=== PATIENT | male | born 1940 | race Caucasian/White ===

== ENCOUNTER → 2017-08-12 | Outpatient (CLI) | payer MEDICARE, BC ==
--- NOTE | 2017-08-12 13:34 | MR ---
EXAMINATION TYPE: MR shoulder RT wo con DATE OF EXAM: 08/12/2017 COMPARISON: NONE HISTORY: M75.101 Rotator cuff tear/rupture, right shoulder, loss of range of motion, pain TECHNIQUE: Multiplanar, multisequence imaging of the right shoulder is performed without contrast. FINDINGS: Rotator Cuff: There is a small intrasubstance tear of the insertional fibers of the supraspinatus measuring 0.3 x 0 .7 cm superimposed upon moderate tendinopathy as there is heterogenous signal of the insertional fibe rs of the supraspinatus and at the myotendinous junction. There is bursal surface fraying of the supr aspinatus. Subchondral cysts are noted at the greater tuberosity. Scant amount of subdeltoid/subacrom ial fluid is seen. There is minimal insertional tendinosis of the infraspinatus tendinous signal heterogeneity without t ear. Teres minor tendon is unremarkable. Mild insertional fiber tendinosis is also seen of the subsca pularis without tear. Acromioclavicular Joint: Moderate acromioclavicular arthropathy is noted with capsular hypertrophy, s ubchondral cysts and marginal osteophytes minimally impressing upon the supraspinatus musculature wit hout signal alteration. Glenohumeral Joint: Large subchondral cystic change are seen of the glenoid and at the greater tubero sity. There is mild posterior joint space narrowing and heterogeneity of the opposing surface cartila ge. Labrum: Complex tear of the anterior superior glenoid labrum is present without displacement. Degener ation of the anterior inferior glenoid labrum. Complex tear is also seen of the posterior inferior gl enoid labrum with a 6 mm para labral cyst. Superior posterior glenoid labrum is intact and unremarkab le. Biceps Tendon: There is a split tear of the extra-articular portion of the biceps tendon extending in to the intra-articular portion with severe biceps tendinosis as there is attenuation of the biceps te ndon at its insertion on the biceps anchor. Hemorrhage is seen within the bicipital groove and surrou nding intra-articular portion of the biceps tendon. Bone marrow signal: No focal abnormal marrow signal is appreciated. IMPRESSION: 1. Small intrasubstance tear of the insertional fibers of the supraspinatus measuring 0.3 x 0.7 cm mcdonald perimposed upon moderate tendinopathy. 2. Mild insertional fiber tendinopathy of the infraspinatus and subscapularis without tear. 3. Complex tears of the anterior superior glenoid labrum and posterior inferior glenoid labrum with p osterior inferior para labral cyst. Degeneration of the anterior inferior glenoid labrum is also seen . 4. Split tear of the extra-articular portion of the biceps tendon extending into the intra-articular portion with severe biceps tendinosis of the intra-articular portion. Peritendinous hemorrhage is als o seen within the bicipital groove and surrounding the intraarticular portion of the biceps. 5. Moderate glenohumeral arthropathy and acromioclavicular arthropathy.
== END | disposition home or self-care (01) ==
LOC: RADMRIMAIN 06:08
PROVIDERS: ATTEND Internal Medicine
DX: M75.101 Unspecified rotator cuff tear or rupture of right shoulder, not specified as traumatic (principal); S43.491A Other sprain of right shoulder joint, initial encounter; M12.811 Other specific arthropathies, not elsewhere classified, right shoulder; S46.211A Strain of muscle, fascia and tendon of other parts of biceps, right arm, initial encounter; M67.813 Other specified disorders of tendon, right shoulder

== ENCOUNTER → 2018-04-20 | Outpatient (CLI) | payer MEDICARE, BC ==
--- NOTE | 2018-04-20 15:31 | CT ---
EXAMINATION TYPE: CT abdomen pelvis wo con DATE OF EXAM: 04/20/2018 COMPARISON: None HISTORY: 77-year-old male kidney stones, Left side flank and groin pain. CT DLP: 344.9 mGycm. Automated exposure control for dose reduction was used. TECHNIQUE: Contiguous axial scanning of the abdomen and pelvis without IV contrast. Coronal and sagit rob reconstructions performed. FINDINGS: Heart normal size without pericardial effusion. Lung bases clear without pleural effusion. Noncontrast images of the liver show a 1.5 cm hypodense lesion, likely cyst in the inferior right jt er lobe. A 1.2 cm gallstone is present. Adrenal glands and pancreas show no gross abnormality by noncontrast CT. There is a 1.9 cm hypodense lesion medial right kidney inadequately characterized on this noncontrast study, suspected cyst. Attempt can be made to confirm this by ultrasound. Vascular calcifications ne ar the left renal hilum. No nephrolithiasis or hydronephrosis seen on either side. Splenomegaly at 14.8 cm on coronal series. Scattered borderline sized retroperitoneal lymph nodes measuring up to 9 mm in the left periaortic re gion and scattered nonenlarged mesenteric lymph nodes. No dilated small bowel, free fluid, or free air. Normal appendix. Moderate stool burden without pericolonic inflammatory change. There are bilateral inguinal hernias, suspect direct hernia is containing a few small bowel loops on the right measuring 7.7 x 2.5 cm and containing a segment of proximal sigmoid colon on the left measu ring 7.2 x 3.6 cm. No obstructive or inflammatory changes are seen. Bladder urine distended. Prostate gland is enlarged measuring 5.4 cm wide. Extensive metal hardware a rtifact relating to the patient's left hip replacement limits assessment of the pelvis. No abnormal f luid collection seen. Prominent obturator chain lymph nodes measure up to 7 mm on the left is 8 mm on the right. Bones: Prominent heterotopic ossifications about the left greater trochanter. A sclerotic focus in th e right iliac bone has stellate margins suggestive of a bone island. Degenerative changes throughout the visualized spine. Superior and inferior endplate Schmorl's nodes of L1 and grade 1 anterolisthesi s at both T11-T12 and L4-L5. IMPRESSION: 1. Moderate-sized bilateral inguinal hernias. These appear to be direct inguinal hernias and contain a short segment of proximal sigmoid colon on the left and a couple small bowel loops on the right. N o obstructive or inflammatory changes. 2. No nephrolithiasis or hydronephrosis seen. A 1.9 cm lesion in the right kidney. Recommend attempt at characterizing this as a benign cyst by ultrasound. 3. Cholelithiasis. 4. Mild splenomegaly (14.8 cm). 5. Prostatomegaly (5.4 cm wide). A couple prominent obturator chain and left para-aortic lymph nodes measuring up to 9 mm are probably reactive/post inflammatory. Correlate with PSA values.
== END | disposition home or self-care (01) ==
LOC: RADCTMAIN 14:57
PROVIDERS: ATTEND Internal Medicine
DX: N28.9 Disorder of kidney and ureter, unspecified (principal); N40.0 Benign prostatic hyperplasia without lower urinary tract symptoms
CPT/HCPCS: 74176

== ENCOUNTER → 2021-06-04 | Outpatient (CLI) | payer MEDICARE ==
--- NOTE | 2021-06-04 16:44 | MR ---
EXAMINATION TYPE: MR brain and iac wo/w con DATE OF EXAM: 06/04/2021 COMPARISON: NONE HISTORY: Left sided hearing loss. TECHNIQUE: Multiplanar, multisequence images of the brain and brainstem along with internal auditory canals are all performed without and with IV contrast, utilizing 7.5 mL intravenous Gadavist . FINDINGS: Diffusion weighted images demonstrate no evidence of a recent infarct or other diffusion ab normality. There is moderate ventricular and sulcal prominence. There are significant focal and confluent areas of T2 hyperintensity throughout the white matter bilaterally. Midline structures demonstrate normal morphology. The craniocervical junction appears within normal limits. Post contrast images demonstrate no abnormal enhancement. The dural venous sinuses appear pa tent. The visualized sinuses are clear and the globes are intact. Increased fluid signal bilateral mastoid air cells. The vestibulocochlear complexes are symmetric and felt within normal limits. There is no suspicious enhancing cerebellopontine angle mass identified b ilaterally. IMPRESSION: 1. There is moderate diffuse cerebral atrophy and advanced nonspecific white matter changes may be on basis of product of severe chronic small vessel ischemic change but other etiologies are not exclud ed. No suspicious enhancement noted. 2. Increased fluid signal bilateral mastoid air cells raises concern for underlying mastoiditis, magui elate clinically.
== END | disposition home or self-care (01) ==
LOC: RADMRIMAIN 14:53
PROVIDERS: ATTEND Otolaryngology
DX: G31.9 Degenerative disease of nervous system, unspecified (principal)
CPT/HCPCS: 70553; A9585

== ENCOUNTER 2022-12-13 10:40 | Emergency (ER) | payer MEDICARE ==
[2022-12-13] MEDS ORDERED: DIPH,PERTUS(ACELL)TETVAC-LF 0.5 ML VIAL IM ONE (10:46)
[2022-12-13 10:48] VITALS: PULSE 86; RESP 16; TEMP 97.7
[2022-12-13 10:55] LABS: Glucose,Whole Blood 95 mg/dL (70-110)
[2022-12-13 11:18] LABS: ALT 39 U/L (4-49); African American GFR (CKD) >90 (>60 ml/min/1.73 sqM); Albumin 4.2 g/dL (3.5-5.0); Alcohol <10 mg/dL; Anion Gap 9 mmol/L; Blood Urea Nitrogen 24 mg/dL (9-20); Calcium 9.3 mg/dL (8.4-10.2); Carbon Dioxide 27 mmol/L (22-30); Chloride 101 mmol/L (98-107); Glucose 94 mg/dL (74-99); Non-African American GFR(CKD) 87 (>60 ml/min/1.73 sqM); Sodium 137 mmol/L (137-145); Total Bilirubin 0.9 mg/dL (0.2-1.3); Total Protein 6.1 g/dL (6.3-8.2)
--- NOTE | 2022-12-13 11:18 | ED ---
General Adult HPI - General Chief complaint: Head Injury Stated complaint: Fall, head injury Time Seen by Provider: 12/13/22 10:40 Source: patient, EMS, RN notes reviewed, old records reviewed Mode of arrival: EMS Limitations: altered mental status - History of Present Illness Initial comments: This is an 82-year-old male who presents emergency department via EMS. Patient history FROM EMS BECAUSE PATIENT IS DEMENTED AND STATES HE DOESN'T REMEMBER WHAT HAPPENED BUT HE'S BEEN TOLD HE FELL DOWN STEPS. ACCORDING TO EMS PATIENT FELL DOWN STEPS. It is unknown if he lost consciousness no one witnessed that he was not seen for about 10-15 minutes. Number of steps is also unknown since he was walking down steps holding the railing in the railing broke. Patient has a laceration of the posterior aspect of his scalp. Patient also has an abrasion to his left elbow. Patient himself has no complaints of pain. Patient refused to wear collar. - Related Data Home Medications Medication Instructions Recorded Confirmed Cyanocobalamin [Vitamin B-12] 500 mcg PO DAILY 12/12/15 12/12/15 Diclofenac Sodium [Voltaren Gel] 1 applic TOPICAL DAILY PRN 12/12/15 12/12/15 Fish Oil/Dha/Epa [Fish Oil 1,200 1 cap PO DAILY 12/12/15 12/12/15 mg Fish Oil] Lactobacillus Acidophilus 1 tab PO DAILY 12/12/15 12/12/15 [Acidophilus] Omeprazole [PriLOSEC] 40 mg PO BID 12/12/15 12/12/15 Pseudoephedrine [Sudafed] 30 mg PO DAILY PRN 12/12/15 12/12/15 Sodium Chloride [[place]] 1 spray EA NOSTRIL DAILY PRN 12/12/15 12/12/15 levETIRAcetam [Keppra] 500 mg PO BID 12/12/15 12/12/15 Allergies Allergy/AdvReac Type Severity Reaction Status Date / Time amoxicillin Allergy Rash/Hives Verified 12/12/15 19:27 Review of Systems ROS Statement: Those systems with pertinent positive or pertinent negative responses have been documented in the HPI. ROS Other: All systems not noted in ROS Statement are negative. Past Medical History Past Medical History: Cancer Additional Past Medical History / Comment(s): hypogylcemia, Arthritis History of Any Multi-Drug Resistant Organisms: None Reported Past Surgical History: Orthopedic Surgery Past Psychological History: No Psychological Hx Reported Past Alcohol Use History: Daily Past Drug Use History: None Reported General Exam - General Exam Comments Initial Comments: GENERAL: Patient is well-developed and well-nourished. Patient is nontoxic and well- hydrated and is in mild distress. ENT: Neck is soft and supple. No significant lymphadenopathy is noted. Oropharynx is clear. Moist mucous membranes. Neck has full range of motion without eliciting any pain. EYES: The sclera were anicteric and conjunctiva were pink and moist. Extraocular movements were intact and pupils were equal round and reactive to light. Eyelids were unremarkable. PULMONARY: Unlabored respirations. Good breath sounds bilaterally. No audible rales rhonchi or wheezing was noted. CARDIOVASCULAR: There is a regular rate and rhythm without any murmurs gallops or rubs. ABDOMEN: Soft and nontender with normal bowel sounds. SKIN: Scalp laceration and the pattern on the posterior aspect of the scalp. Patient also has an abrasion to the left elbow NEUROLOGIC: Patient is alert and oriented x3. Cranial nerves II through XII are grossly intact. Motor and sensory are also intact. Normal speech, volume and content. Symmetrical smile. MUSCULOSKELETAL: Normal extremities with adequate strength and full range of motion. No lower extremity swelling or edema. No calf tenderness. LYMPHATICS: No significant lymphadenopathy is noted PSYCHIATRIC: Normal psychiatric evaluation. Limitations: altered mental status Course Vital Signs 12/13/22 12/13/22 10:41 11:00 Temperature 97.7 F Pulse Rate 86 Respiratory 16 16 Rate Blood Pressure 135/70 123/68 O2 Sat by Pulse 96 Oximetry Procedures - Laceration Laceration #1 Consent Obtained: verbal consent Indication: laceration Site: scalp Description: irregular Depth: simple, single layer Size of Sutures: other ([place]) Number of Sutures: 12 ([place]) Complications: pain Patient Tolerated Procedure: well Medical Decision Making - Medical Decision Making EKG was interpreted by myself shows a sinus rhythm with occasional PVC. Patie nt's rate was 81 bpm ID interval 139 QRS is 93 QT interval is 356 QTC is 393. Patient's EKG shows no ST segment elevation or depression. Was pt. sent in by a medical professional or institution (, PA, CARRIER LOADER, urgent care, hospital, or custodial...) When possible be specific @ -No Did you speak to anyone other than the patient for history (EMS, parent, family, police, friend...)? What history was obtained from this source @ -EMS gave most of the history since the patient has dementia and doesn't remember the incident Did you review nursing and triage notes (agree or disagree)? Why? @ -I reviewed and agree with nursing and triage notes Were old charts reviewed (outside hosp., previous admission, EMS record, old EKG, old radiological studies, urgent care reports/EKG's, custodial records)? Report findings @ -No old charts were reviewed Differential Diagnosis (chest pain, altered mental status, abdominal pain women, abdominal pain men, vaginal bleeding, weakness, fever, dyspnea, syncope, headache, dizziness, GI bleed, back pain, seizure, CVA, palpatations, mental health, musculoskeletal)? @ -Cervical spine fracture, scalp contusion, scalp laceration, intraparenchymal bleed, epidural, subdural, this is not LISTED EKG interpreted by me (3pts min.). @ -As above X-rays interpreted by me (1pt min.). @ -Chest x-ray was interpreted by myself I saw no acute abnormalities. X-ray of the pelvis was interpreted by myself I see no acute normalities. X-ray of the elbow was interpreted by myself I see no acute abnormality CT interpreted by me (1pt min.). @ -CT of the brain was interpreted by myself as an intraparenchymal bleed in the right frontal lobe about [address] of the C-spine was also interpreted by myself shows a spinous process fracture at C6 U/S interpreted by me (1pt. min.). @ -None done What testing was considered but not performed or refused? (CT, X-rays, U/S, labs)? Why? @ -None What meds were considered but not given or refused? Why? @ -None Did you discuss the management of the patient with other professionals (professionals i.e. , PA, CARRIER LOADER, lab, RT, psych nurse, community mental health social worker, tube cutter, teacher, morals squad police officer, correctional counselor/case manager)? Give summary @ -I spoke with Dr. Valdes at the [facility] and he accepted the transfer the patient. I then spoke with the ER physician Dr. Romero and he accepted the transfer to the emergency department. Was smoking cessation discussed for >3mins.? @ -No Was critical care preformed (if so, how long)? @ -35 minutes Were there social determinants of health that impacted care today? How? (Homelessness, low income, unemployed, alcoholism, drug addiction, transportation, low edu. Level, literacy, decrease access to med. care, [facility], rehab)? @ -No Was there de-escalation of care discussed even if they declined (Discuss DNR or withdrawal of care, Hospice)? DNR status @ -No What co-morbidities impacted this encounter? (DM, HTN, Smoking, COPD, CAD, Cancer, CVA, ARF, Chemo, Hep., AIDS, mental health diagnosis, sleep apnea, morbid obesity)? @ -None Was patient admitted / discharged? Hospital course, mention meds given and rou te, prescriptions, significant lab abnormalities, going to OR and other pertinent info. @ -Patient fell down multiple steps and had altered level of consciousness was called priority 2 trauma. When patient arrived he got x-rays the chest elbow and pelvis. Patient also had CT of the brain and C-spine which showed an intraparenchymal bleed in the C6 spinous process fracture. Since we did not have neurosurgery at this facility we were transferring the patient to [facility] Undiagnosed new problem with uncertain prognosis? @ -No Drug Therapy requiring intensive monitoring for toxicity (Heparin, Nitro, Insulin, Cardizem)? @ -No Were any procedures done? @ -No Diagnosis/symptom? @ -Parenchymal hemorrhage Acute, or Chronic, or Acute on Chronic? @ -Acute Uncomplicated (without systemic symptoms) or Complicated (systemic symptoms)? @ -Complicated Side effects of treatment? @ -No Exacerbation, Progression, or Severe Exacerbation? @ -No Poses a threat to life or bodily function? How? (Chest pain, [place], [place], pneumonia, PE, COPD, DKA, ARF, appy, cholecystitis, CVA, Diverticulitis, Homicidal, Suicidal, threat to staff... and all critical care pts) @ -Yes this could lead to further bleeding and intracranial shifting of the brain which could lead to morbidity or mortality Diagnosis/symptom? @ -Scalp laceration Acute, or Chronic, or Acute on Chronic? @ -Acute Uncomplicated (without systemic symptoms) or Complicated (systemic symptoms)? @ -Uncomplicated Side effects of treatment? @ -none Exacerbation, Progression, or Severe Exacerbation] @ -no Poses a threat to life or bodily function? @ -no Diagnosis/symptom? @ -C6 spinous process fracture Acute, or Chronic, or Acute on Chronic? @ -Acute Uncomplicated (without systemic symptoms) or Complicated (systemic symptoms)? @ -Uncomplicated Side effects of treatment? @ -none Exacerbation, Progression, or Severe Exacerbation] @ -no Poses a threat to life or bodily function? @ -no Diagnosis/symptom? @ -Contusion upper back Acute, or Chronic, or Acute on Chronic? @ -Acute Uncomplicated (without systemic symptoms) or Complicated (systemic symptoms)? @ -Uncomplicated Side effects of treatment? @ -none Exacerbation, Progression, or Severe Exacerbation] @ -no Poses a threat to life or bodily function? @ -no Diagnosis/symptom? @ -Abrasion elbow Acute, or Chronic, or Acute on Chronic? @ -Acute Uncomplicated (without systemic symptoms) or Complicated (systemic symptoms)? @ -Uncomplicated Side effects of treatment? @ -none Exacerbation, Progression, or Severe Exacerbation] @ -no Poses a threat to life or bodily function? @ -no - Lab Data Result diagrams: 12/13/22 10:50 12/13/22 10:50 Lab Results 12/13/22 12/13/22 12/13/22 Range/Units 10:50 10:50 10:50 WBC 23.5 H (3.8-10.6) k/uL RBC 4.66 (4.30-5.90) m/uL Hgb 15.4 (13.0-17.5) gm/dL Hct 45.1 (39.0-53.0) % MCV 96.9 (80.0-100.0) fL MCH 33.1 (25.0-35.0) pg MCHC 34.2 (31.0-37.0) g/dL RDW 12.7 (11.5-15.5) % MPV 7.1 PT 11.2 (9.0-12.0) sec INR 1.1 (<1.2) APTT 22.9 (22.0-30.0) sec Sodium 137 (137-145) mmol/L Potassium 4.3 (3.5-5.1) mmol/L Chloride 101 (98-107) mmol/L Carbon Dioxide 27 (22-30) mmol/L Anion Gap 9 mmol/L BUN 24 H (9-20) mg/dL Creatinine 0.75 (0.66-1.25) mg/dL Est GFR (CKD-EPI)AfAm >90 (>60 ml/min/1.73 sqM) Est GFR (CKD-EPI)NonAf 87 (>60 ml/min/1.73 sqM) Glucose 94 (74-99) mg/dL POC Glucose (mg/dL) (70-110) mg/dL POC Glu Substation Operator Helper ID Calcium 9.3 (8.4-10.2) mg/dL Total Bilirubin 0.9 (0.2-1.3) mg/dL AST 45 (17-59) U/L ALT 39 (4-49) U/L Alkaline Phosphatase 65 (38-126) U/L Troponin I (0.000-0.034) ng/mL Total Protein 6.1 L (6.3-8.2) g/dL Albumin 4.2 (3.5-5.0) g/dL Serum Alcohol <10 mg/dL Blood Type Blood Type Confirm Blood Type Recheck Bld Type Recheck Status Antibody Screen Spec Expiration Date 12/13/22 12/13/22 12/13/22 Range/Units 10:50 10:50 10:53 WBC (3.8-10.6) k/uL RBC (4.30-5.90) m/uL Hgb (13.0-17.5) gm/dL Hct (39.0-53.0) % MCV (80.0-100.0) fL MCH (25.0-35.0) pg MCHC (31.0-37.0) g/dL RDW (11.5-15.5) % MPV PT (9.0-12.0) sec INR (<1.2) APTT (22.0-30.0) sec Sodium (137-145) mmol/L Potassium (3.5-5.1) mmol/L Chloride (98-107) mmol/L Carbon Dioxide (22-30) mmol/L Anion Gap mmol/L BUN (9-20) mg/dL Creatinine (0.66-1.25) mg/dL Est GFR (CKD-EPI)AfAm (>60 ml/min/1.73 sqM) Est GFR (CKD-EPI)NonAf (>60 ml/min/1.73 sqM) Glucose (74-99) mg/dL POC Glucose (mg/dL) 95 (70-110) mg/dL POC Glu Substation Operator Helper ID Rosie Araujo Calcium (8.4-10.2) mg/dL Total Bilirubin (0.2-1.3) mg/dL AST (17-59) U/L ALT (4-49) U/L Alkaline Phosphatase (38-126) U/L Troponin I 0.012 (0.000-0.034) ng/mL Total Protein (6.3-8.2) g/dL Albumin (3.5-5.0) g/dL Serum Alcohol mg/dL Blood Type A Negative Blood Type Confirm Blood Type Recheck No Previous Record Bld Type Recheck Status CABO Indicated Antibody Screen NEGATIVE Spec Expiration Date 12/16/2022 - 234912/13/22 Range/Units 11:00 WBC (3.8-10.6) k/uL RBC (4.30-5.90) m/uL Hgb (13.0-17.5) gm/dL Hct (39.0-53.0) % MCV (80.0-100.0) fL MCH (25.0-35.0) pg MCHC (31.0-37.0) g/dL RDW (11.5-15.5) % MPV PT (9.0-12.0) sec INR (<1.2) APTT (22.0-30.0) sec Sodium (137-145) mmol/L Potassium (3.5-5.1) mmol/L Chloride (98-107) mmol/L Carbon Dioxide (22-30) mmol/L Anion Gap mmol/L BUN (9-20) mg/dL Creatinine (0.66-1.25) mg/dL Est GFR (CKD-EPI)AfAm (>60 ml/min/1.73 sqM) Est GFR (CKD-EPI)NonAf (>60 ml/min/1.73 sqM) Glucose (74-99) mg/dL POC Glucose (mg/dL) (70-110) mg/dL POC Glu Substation Operator Helper ID Calcium (8.4-10.2) mg/dL Total Bilirubin (0.2-1.3) mg/dL AST (17-59) U/L ALT (4-49) U/L Alkaline Phosphatase (38-126) U/L Troponin I (0.000-0.034) ng/mL Total Protein (6.3-8.2) g/dL Albumin (3.5-5.0) g/dL Serum Alcohol mg/dL Blood Type Blood Type Confirm A Negative Blood Type Recheck Bld Type Recheck Status Antibody Screen Spec Expiration Date Critical Care Time Critical Care Time: Yes Total Critical Care Time: 35 Disposition Clinical Impression: Intraparenchymal hemorrhage of brain, Spinous process fracture, Scalp laceration, Contusion, back, Abrasion of elbow Disposition: OTHER INSTITUTION NOT DEFINED Referrals: Bryant Rvai MD [Primary Care Provider] - 1-2 days Time of Disposition: 12:36 - Out of Hospital Transfer - Req. Specs Out of Hospital Transfer - Requested Specifics: Other Emergency Center ([facility]
[2022-12-13 11:20] LABS: AST 45 U/L (17-59); Alkaline Phosphatase 65 U/L (38-126); Potassium 4.3 mmol/L (3.5-5.1)
[2022-12-13 11:21] LABS: INR 1.1 (<1.2); Partial Thromboplastin Time 22.9 sec (22.0-30.0); Prothrombin Time 11.2 sec (9.0-12.0)
--- NOTE | 2022-12-13 11:25 | XR ---
EXAMINATION TYPE: XR elbow complete LT DATE OF EXAM: 12/13/2022 11:17 AM INDICATION: Patient age:Male; 82 years old; Reason for study: Trauma; COMPARISON: None TECHNIQUE: The left elbow was examined in AP, lateral, and oblique projections. FINDINGS: No evidence of any acute osseous pathology, joint dislocation, or soft tissue swelling is n oted. No evidence of joint effusion is present. Degeneration changes of the elbow with osteophyte fo rmation joint space narrowing. IMPRESSION: Elbow degeneration without discrete fracture visualized. If there remains concern consider CT.
[2022-12-13 11:26] VITALS: BP 123/68
--- NOTE | 2022-12-13 11:28 | XR ---
EXAMINATION TYPE: XR chest 1V portable DATE OF EXAM: 12/13/2022 10:53 AM COMPARISON: Chest radiographs from 12/12/2015 TECHNIQUE: XR chest 1V portable Frontal view of the chest. CLINICAL INDICATION:Male, 82 years old with history of trauma; FINDINGS: Lungs/Pleura: There is no evidence of pleural effusion, focal consolidation, or pneumothorax. Pulmonary vascularity: Unremarkable. Heart/mediastinum: Cardiomediastinal silhouette is unremarkable. Musculoskeletal: No acute osseous pathology. IMPRESSION: No acute cardiopulmonary disease/process.
--- NOTE | 2022-12-13 11:29 | XR ---
EXAMINATION TYPE: XR pelvis AP view DATE OF EXAM: 12/13/2022 10:53 AM INDICATION: Patient age:Male; 82 years old; Reason for study: Trauma; COMPARISON: None TECHNIQUE: The pelvis was examined in a single projection. FINDINGS: There is no evidence of fracture or dislocation. There is no soft tissue abnormality. No a bnormal calcifications are present. The spine appears intact. Left hip arthroplasty changes. Hardware appears intact. The pelvis appears intact. Degeneration changes right superior acetabulum. IMPRESSION: No acute osseous pathology.
[2022-12-13 11:38] LABS: HCT 45.1 % (39.0-53.0); HGB 15.4 gm/dL (13.0-17.5); MCH 33.1 pg (25.0-35.0); MCHC 34.2 g/dL (31.0-37.0); MCV 96.9 fL (80.0-100.0); Mean Platelet Volume 7.1; RBC 4.66 m/uL (4.30-5.90); RDW 12.7 % (11.5-15.5); WBC 23.5 k/uL (3.8-10.6)
--- NOTE | 2022-12-13 11:42 | CT ---
EXAMINATION TYPE: CT brain cspine wo con CT DLP: 1496.3 mGycm, Automated exposure control for dose reduction was used. DATE OF EXAM: 12/13/2022 11:16 AM COMPARISON: MRI 09/30/2022 CLINICAL INDICATION:Male, 82 years old with history of trauma; Head trauma from fall down 17 stairs. TECHNIQUE: Brain: Multiple axial CT images of the brain were obtained without IV contrast. Cspine: Axial CT images from the skull base to the inferior aspect of T2 we obtained without intraven ous contrast. Coronal and sagittal reformatted images were also reviewed. FINDINGS: Brain: Extra-axial spaces: No abnormal extra-axial fluid collections. Ventricular system: Within normal limits Cerebral parenchyma: High-density area within the right frontal lobe posterior aspect within the subc utaneous cortical white matter measuring 12 mm. The rivera-white junction is well differentiated. Cerebellum: Unremarkable. Mass effect: No evidence of midline shift. Intracranial vasculature: unremarkable Soft tissues: Subcutaneous hematoma along the posterior aspect measuring 3.8 x 0.73 m. Calvarium/osseous structures: No depressed skull fracture. Paranasal sinuses and mastoid air cells: Clear. Visualized orbits: Bilateral aphakia Cervical spine: Fracture: Acute fracture through the spinous process of C6. This appreciated on series 4 image 58 Oss eous structures: Multilevel degenerative disc disease changes with endplate spurring and disc osteoph yte complex's. Vertebral alignment: Within normal limits. Spinal canal/Neural Foramina: Disc osteophyte complexes at with at least mild spinal canal stenosis. No evidence for significant neural foraminal stenosis. Neck soft tissues: Prevertebral soft tissues are within normal limits. Other: The airway is patent. The lung apices are clear. Atherosclerosis of the arterial vascular. IMPRESSION: 1. Intraparenchymal hemorrhage of the posterior right frontal lobe measuring 12 mm. 2. Right posterior scalp hematoma. 3. Acute fracture through the spinous process of C6 minimal displacement. No additional fractures de finitively visualized. 4. Moderate multilevel degenerative disc disease. 5. Atherosclerosis of the carotid bifurcations. 6. Nonspecific white matter changes. Findings communicated to Dr. Sonny Rojas MD on 12/13/2022 11:[address] Bright Pérez.
[2022-12-13 12:53] LABS: Monocytes # (M) 0.71 k/uL (0-1.0); Neutrophils # (M) 4.23 k/uL (1.3-7.7); Neutrophils % (M) 18 %; Nucleated Red Blood Cells 0 /100 WBC (0-0); Total Cells Counted 200
[2022-12-13 12:55] LABS: Platelet Count 86 k/uL (150-450)
== END 2022-12-13 12:50 | disposition other institution (70) ==
LOC: EC 10:40 → SUPCPDRO 10:40 → EC 12:50
DX: S12.500A Unspecified displaced fracture of sixth cervical vertebra, initial encounter for closed fracture (principal); S01.01XA Laceration without foreign body of scalp, initial encounter; S06.360A Traumatic hemorrhage of cerebrum, unspecified, without loss of consciousness, initial encounter; S20.229A Contusion of unspecified back wall of thorax, initial encounter; S50.312A Abrasion of left elbow, initial encounter; Z23 Encounter for immunization; Z88.0 Allergy status to penicillin; W10.9XXA Fall (on) (from) unspecified stairs and steps, initial encounter; Y93.01 Activity, walking, marching and hiking
CPT/HCPCS: 36415; 93005; 86900; 86901; 80053; 84484; 85025; 85610; 85730; 86850; 72170; 73080; 71045; 72125; 70450; 90715; 12001; 99291; 90471; G0480; 80320